=== PATIENT | male | born 1955 | race Caucasian/White ===

== ENCOUNTER 2016-09-17 20:34 | Emergency (ER) | payer OTHER, BC ==
[~2016-09-17] VITALS: Ht 190.5 cm; Wt 92.5 kg
[2016-09-17 20:45] VITALS: BP_SYST 105
[2016-09-17] MEDS ORDERED: CLOP75TA32 PO (20:59)
[2016-09-17] MEDS ORDERED: LIP40 PO (20:59)
[2016-09-17] MEDS ORDERED: COR6.25 PO (21:00)
[2016-09-17] MEDS ORDERED: ASPI-1063 PO (21:01)
[2016-09-17] MEDS ORDERED: LIDOCAINE 1% 10 MG/ML, 20 ML MDV IJ ONE (21:45)
[2016-09-17] MEDS ORDERED: LIDOCAINE 2%, 20 ML MDV ONE (21:56)
[2016-09-17 22:28] VITALS: BP_SYST 106
== END 2016-09-17 22:28 | disposition home or self-care (01) ==
LOC: SED 20:34
DX: S51.811A Laceration without foreign body of right forearm, initial encounter (principal); Z86.73 Personal history of transient ischemic attack (TIA), and cerebral infarction without residual deficits; Z79.899 Other long term (current) drug therapy; Z79.82 Long term (current) use of aspirin; W45.8XXA Other foreign body or object entering through skin, initial encounter; Y93.89 Activity, other specified; Y92.89 Other specified places as the place of occurrence of the external cause; Y99.8 Other external cause status
CPT/HCPCS: 99283; J2001